=== PATIENT | male | born 2000 | race African-American/Black ===

== ENCOUNTER 2025-08-23 00:54 | Emergency (ER) | payer SELFPAY ==
[2025-08-23 00:55] VITALS: BP 149/89; PULSE 118; RESP 16; TEMP 37.1; O2SAT 93; BMI 49.1
--- NOTE | 2025-08-23 01:00 | XR_ITS ---
PROCEDURE INFORMATION: Exam: XR Chest Exam date and time: 08/23/2025 1:45 AM Age: 24 years old Clinical indication: Shortness of breath; Additional info: SOA TECHNIQUE: Imaging protocol: Radiologic exam of the chest. Views: 1 view. COMPARISON: No relevant prior studies available. FINDINGS: Lungs: Unremarkable. No consolidation. Pleural spaces: Unremarkable. No pleural effusion. No pneumothorax. Heart/Mediastinum: Unremarkable. No cardiomegaly. Bones/joints: Unremarkable. IMPRESSION: No acute findings.
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
--- NOTE | 2025-08-23 01:31 | ECG_ITS ---
APPROVED REPORT Exam: Resting ECG HR:106 bpm ECG Measurements Heart Rate 106 AXES AL 190 P 61 QRSd 99 QRS 68 QT 312 T 34 QTc 374 Conclusion SINUS TACHYCARDIA ABNORMAL RHYTHM ECG No STEMI Electronically signed by : DION GOFF, 08/23/2025 06:57:50
[2025-08-23] MEDS: IPRATROPIUM/ALBUTEROL 3 ML NEB 9 ML IH (01:34)
[2025-08-23] MEDS: ASPIRIN 81MG CHEWABLE TABLET 324 MG PO (01:35)
[2025-08-23 01:36] LABS: VBG HCO3 21.3 mmol/L (23-30); VBG PCO2 34.4 mmol/L (35-51); VBG PH 7.41 mmol/L (7.31-7.41); VBG PO2 78.0 mmol/L (28-40)
[2025-08-23 01:39] LABS: Lactate Venous 2.2 mmol/L (0.4-2.0)
[2025-08-23 01:41] LABS: Hematocrit 42.0 % (42.0-52.0); Hemoglobin 14.4 g/dL (14.1-18.0); Immature Granulocytes % 0.6 %; Mean Corpuscular HGB Conc 34.3 g/dL (31.8-35.4); Mean Corpuscular Hemoglobin 28.8 pg (27.0-31.2); Mean Corpuscular Volume 84.0 fl (80-94); Nucleated Red Blood Cells % 0 %; Platelet Count 225 K/mm3 (142-424); Red Blood Count 5.00 M/mm3 (4.60-6.20); Red Cell Distribution Width-SD 38.6 fL; White Blood Count 7.1 K/mm3 (4.8-10.8)
[2025-08-23 01:48] LABS: Alanine Aminotransferase 54 U/L (12-78); Albumin Level 4.6 g/dl (3.5-5.0); Albumin/Globulin Ratio 1.4 (1.1-1.8); Alkaline Phosphatase 62 U/L (38-126); Anion Gap 14.1 mEq/L (5-15); Aspartate Amino Transferase 37 U/L (17-59); Bilirubin,Total 1.1 mg/dl (0.2-1.3); Blood Urea Nitrogen 17 mg/dl (9-20); Calcium 9.6 mg/dl (8.4-10.2); Carbon Dioxide 20 mmol/L (22.0-30.0); Chloride 106 mmol/L (98-107); Creatinine Clearance Estimated 141 mL/min (50-200); Creatinine,Serum 1.00 mg/dl (0.66-1.25); Estimated Glomerular Filt Rate 90 ml/min (>60); GFR (African American) 109 ML/MIN (>60); Globulin 3.3 g/dL (1.3-3.2); Glucose 126 mg/dl (74-100); Potassium 4.1 mmoL/L (3.5-5.1); Sodium 136 mmol/L (136-145); Total Protein,Serum 7.9 g/dl (6.3-8.2)
[2025-08-23 01:52] LABS: D-Dimer 0.38 ug/mL (0.0-0.5)
[2025-08-23 02:00] LABS: NT Pro Brain Natriuretic Pep. < 20.0 pg/mL (0-125)
[2025-08-23] MEDS: LACTATED RINGERS 1000ML 1,000 ML 999 ML IV (02:01)
[2025-08-23 02:02] LABS: Troponin I 0.01 ng/ml (0.00-0.034)
[2025-08-23] MEDS: METHYLPREDNISOLONE SOD SUCC 125MG VIAL 125 MG IV (02:02)
[2025-08-23 02:44] VITALS: BP 136/76; PULSE 107; RESP 18; TEMP 36.8; O2SAT 96
[2025-08-23 02:49] LABS: Microscopic, Urine URINE MICROSCOPIC (MICROSCOPIC)
[2025-08-23] MEDS: AEROCHAMBER/OPTIHALER 1 UNIT MC (02:51)
[2025-08-23] MEDS: ALBUTEROL-HFA 90MCG/PUFF INHALER 8GM 2 PUFF IH (02:51)
[2025-08-23 03:17] LABS: Bilirubin,Urine Negative (Negative); Color,Urine YELLOW (Yellow); Glucose,Urine (UA) Negative (Negative); Ketones,Urine Negative (Negative); Leukocyte Esterase,Urine Negative (Negative); PH,Urine 7.0 (5.0-8.5); Protein,Urine Negative (Negative); Specific Gravity, Urine 1.020 (1.005-1.030); Urobilinogen,Urine 1.0 EU/dl (0.2)
[2025-08-23 03:22] LABS: Amorphous Sediment,Urine 2+ /lpf; Bacteria,Urine 1+ /lpf; WBC,Urine Occasional #/hpf (0-3)
== END 2025-08-23 02:59 | disposition home or self-care (01) ==
PROVIDERS: Emergency Provider Emergency Medicine
DX: R07.89 Other chest pain (principal); R06.02 Shortness of breath; R00.0 Tachycardia, unspecified; R09.81 Nasal congestion; R51.9 Headache, unspecified; F17.210 Nicotine dependence, cigarettes, uncomplicated
CPT/HCPCS: 71045; 80053; 81001; 82803; 83880; 84484; 85025; 85378; 93005; 96361; 96374; 99285; J2919; J7120